=== PATIENT | male | born 1975 | race Caucasian/White ===

== ENCOUNTER 2017-02-18 19:13 | Emergency (ER) | payer BC, OTHER ==
--- NOTE | 2017-02-18 20:47 | ER Document Report ---
ED Medical Screen (RME) - General Chief Complaint: Constipation Stated Complaint: NO BOWEL MOVEMENT IN 3 DAYS Time Seen by Provider: 02/18/17 20:47 Mode of Arrival: Ambulatory Information source: Patient Notes: 41-year-old male presents to ED for no BM since Saturday. He states he is feeling very blocked up in full. States he went to [facility] this morning they did x-ray putting to take glycerin suppository and MiraLAX but he has not had any improvement. He states she has had a little bit of diarrhea but no real stool. He denies any past medical history of any abdominal problems or abdominal surgeries. I have greeted and performed a rapid initial assessment of this patient. A comprehensive ED assessment and evaluation of the patient, analysis of test results and completion of medical decision making process will be conducted by an additional ED providers. TRAVEL OUTSIDE OF THE [place] IN LAST 30 DAYS: No Past Medical History - Social History Chew tobacco use (# tins/day): No Frequency of alcohol use: Rare Drug Abuse: None Renal/ Medical History: Denies: Hx Peritoneal Dialysis Physical Exam - Abdominal Inspection: Normal Distension: No distension Bowel sounds: Hypoactive Tenderness: Nontender. No: Tender Organomegaly: No organomegaly
--- NOTE | 2017-02-19 01:23 | ER Document Report ---
ED General - General Chief Complaint: Constipation Stated Complaint: NO BOWEL MOVEMENT IN 3 DAYS Time Seen by Provider: 02/18/17 20:47 Mode of Arrival: Ambulatory TRAVEL OUTSIDE OF THE [place] IN LAST 30 DAYS: No - HPI Notes: Patient is a 41-year-old white male with no history of previous abdominal surgeries or issues presents that he has had no bowel movement for 3 days then had a hard bowel movement and felt like he might be getting obstructed. He was seen in [place] where they did an x-ray and advised him to take MiraLAX and a suppository. After this he evacuated and had a loose bowel movement.' No narcotic use, abdominal pain, fever, nausea, vomiting. No prior history of constipation. No history of irritable bowel syndrome. Past Medical History - General Information source: Patient - Social History Smoking Status: Never Smoker Chew tobacco use (# tins/day): No Frequency of alcohol use: Rare Drug Abuse: None Lives with: Family Family History: None Patient has suicidal ideation: No Patient has homicidal ideation: No Renal/ Medical History: Denies: Hx Peritoneal Dialysis Review of Systems - Review of Systems Notes: REVIEW OF SYSTEMS: CONSTITUTIONAL : Denies fever, chills, or sweats. Denies recent illness. EENT: Denies eye, ear, throat, or mouth pain or symptoms. Denies nasal or sinus congestion or discharge. Denies throat, tongue, or mouth swelling or difficulty swallowing. CARDIOVASCULAR: Denies chest pain. Denies palpitations or racing or irregular heart beat. Denies ankle edema. RESPIRATORY: Denies cough, cold, or chest congestion. Denies shortness of breath, difficulty breathing, or wheezing. GASTROINTESTINAL: Denies abdominal pain or distention. Denies nausea, vomiting , or diarrhea. Denies blood in vomitus, stools, or per rectum. Denies black, tarry stools. GENITOURINARY: Denies difficulty urinating, painful urination, burning, frequency, blood in urine, or discharge. MUSCULOSKELETAL: Denies back or neck pain or stiffness. Denies joint pain or swelling. SKIN: Denies rash, lesions or sores. HEMATOLOGIC : Denies easy bruising or bleeding. LYMPHATIC: Denies swollen, enlarged glands. NEUROLOGICAL: Denies confusion or altered mental status. Denies passing out or loss of consciousness. Denies dizziness or lightheadedness. Denies headache. Denies weakness or paralysis or loss of use of either side. Denies problems with gait or speech. Denies sensory loss, numbness, or tingling. Denies seizures. PSYCHIATRIC: Denies anxiety or stress. Denies depression, suicidal ideation, or homicidal ideation. ALL OTHER SYSTEMS REVIEWED AND NEGATIVE. Dictation was performed using [employer] voice recognition software Physical Exam - Vital signs Vitals: Temp Pulse Resp BP Pulse Ox 98.2 F 66 20 147/94 H 97 02/18/17 19:21 02/18/17 19:21 02/18/17 19:21 02/18/17 19:21 02/18/17 19:21 - Notes Notes: PHYSICAL EXAMINATION: GENERAL: Well-appearing, well-nourished and in no acute distress. HEAD: Atraumatic, normocephalic. EYES: Pupils equal round and reactive to light, extraocular movements intact, sclera anicteric, conjunctiva are normal. ENT: Nares patent, oropharynx clear without exudates. Moist mucous membranes. NECK: Normal range of motion, supple without lymphadenopathy LUNGS: Breath sounds clear to auscultation bilaterally and equal. No wheezes rales or rhonchi. HEART: Regular rate and rhythm without murmurs ABDOMEN: Soft, nontender, nondistended abdomen. No guarding, no rebound. No masses appreciated. Rectal exam: Heme negative. No stool in the vault. No obvious hemorrhoids. Musculoskeletal: Normal range of motion, no pitting or edema. No cyanosis. NEUROLOGICAL: Cranial nerves grossly intact. Normal speech, normal gait. Normal sensory, motor exams PSYCH: Normal mood, normal affect. SKIN: Warm, Dry, normal turgor, no rashes or lesions noted. Course - Re-evaluation Re-evalutation: 02/19/17 02:00 X-ray as interpreted by me showed no significant constipation. No evidence for obstruction. There was degenerative joint disease noted in the lower lumbar spine. The x-ray results were shared with the patient and discussed. Most likely the patient's Colon spasm that he had felt like tenesmus was after his fleets enema, but is now resolved. - Vital Signs Vital signs: Temp Pulse Resp BP Pulse Ox 98.2 F 66 20 147/94 H 97 02/18/17 19:21 02/18/17 19:21 02/18/17 19:21 02/18/17 19:21 02/18/17 19:21 Discharge - Discharge Clinical Impression: Osteoarthritis Qualifiers: Osteoarthritis location: spine Spinal region: lumbosacral Spinal osteoarthritis complication: unspecified spinal osteoarthritis Qualified Code(s) : M47.817 - Spondylosis without myelopathy or radiculopathy, lumbosacral region Constipation Qualifiers: Constipation type: other constipation type Qualified Code(s): K59.09 - Other constipation Condition: Stable Disposition: HOME, SELF-CARE Instructions: Constipation ([facility]) Additional Instructions: Drink plenty of fluids. Take magnesium citrate as needed for recurrence of constipation. For chronic constipation, you may consider MiraLAX.
--- NOTE | 2017-02-19 01:50 | RADIOLOGY REPORT (SQ) ---
EXAM DESCRIPTION: KUB/ABDOMEN (SINGLE VIEW) COMPLETED DATE/TIME: 02/19/2017 1:36 am REASON FOR STUDY: constipation?, KUB upright requested COMPARISON: None. NUMBER OF VIEWS: One view. TECHNIQUE: Supine radiographic image of the abdomen acquired. LIMITATIONS: None. FINDINGS: BOWEL GAS PATTERN: Normal bowel gas pattern. No dilated loops. CALCIFICATIONS: Possible 5 mm calculus in the right kidney. SOFT TISSUES: No gross mass or suggestion of organomegaly. HARDWARE: None in the abdomen. BONES: No acute fracture. No worrisome bone lesions. OTHER: No other significant finding. IMPRESSION: NO RADIOGRAPHIC EVIDENCE FOR ACUTE ABDOMINAL DISEASE. POSSIBLE RIGHT RENAL CALCULUS. TECHNICAL DOCUMENTATION: JOB ID: [id number] [employer]- All Rights Reserved
[2017-02-19 02:14] VITALS: BP 139/88
== END 2017-02-19 02:10 | disposition home or self-care (01) ==
LOC: ER 19:13
DX: M47.817 Spondylosis without myelopathy or radiculopathy, lumbosacral region (principal); K59.09 Other constipation; R10.9 Unspecified abdominal pain
CPT/HCPCS: 74000; 99283

== ENCOUNTER 2020-05-01 03:59 | Emergency (ER) | payer BC ==
[2020-05-01] MEDS ORDERED: TETRACAINE HCL 0.5% OPH SOLN 4 ML OS ONE (06:01)
--- NOTE | 2020-05-01 06:41 | ER Document Report ---
ED General - General Chief Complaint: Eye Problem Stated Complaint: POSSIBLE INFECTION LEFT EYE Time Seen by Provider: 05/01/20 06:06 TRAVEL OUTSIDE OF THE [place] 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 Initially there was no pain. He says that he has since then repeatedly touched and rub the eye and the eye now feels irritated. He denies fever. He denies respiratory symptoms. He is not on any prescription medication. He states he is otherwise in good general health. He specifically denies any discrete trauma to the eye. He wears glasses. His vision is normal in the opposite eye with his corrective lenses. - Related Data Allergies/Adverse Reactions: Penicillins Allergy (Verified 05/01/20 04:12) Past Medical History - General Information source: Patient, [facility] Records - Social History Smoking Status: Current Every Day Smoker Frequency of alcohol use: Rare Drug Abuse: None Family History: None - Medical History Medical History: Negative Renal/ Medical History: Denies: Hx Peritoneal Dialysis Review of Systems - Review of Systems Notes: Constitutional: Negative for fever. HENT: Negative for sore throat. Eyes: As per HPI. Cardiovascular: Negative for chest pain. Respiratory: Negative for shortness of breath. Gastrointestinal: Negative for abdominal pain, vomiting or diarrhea. Genitourinary: Negative for dysuria. Musculoskeletal: Negative for back pain. Skin: Negative for rash. Neurological: Negative for headaches, weakness or numbness. 10 point ROS negative except as marked above and in HPI. Physical Exam - Vital signs Vitals: Temp Pulse Resp BP Pulse Ox 97.9 F 79 18 166/100 H 95 05/01/20 04:04 05/01/20 04:04 05/01/20 04:04 05/01/20 04:04 05/01/20 04:04 - Notes Notes: GENERAL: Well-developed well-nourished middle-age male appearing in no acute distress. SKIN: Good turgor no rashes. HEAD: Normocephalic atraumatic. EYES: PERRLA. EOMI. Prominent sub-conjunctival hemorrhage of the medial aspect of the left eye. No foreign body on lid eversion upper or lower. Fluorescein staining shows corneal abrasion along the limbus on the nasal side. No ulcerations or dendrites noted. There is no drainage or discharge. No streaming of floor seen. Media clear. Patient is unable to read eye chart with the left eye as per his usual baseline. EARS: CANALS AND TMS CLEAR. NOSE: CLEAR. MOUTH: Moist mucosa. Good dentition. No stridor or edema. No drooling. NECK: Supple. No masses or thyromegaly. No adenopathy. Carotids 2+ without bruits. No JVD. BACK: Symmetrical without tenderness. CHEST: Respirations unlabored. Breath sounds clear and symmetrical. HEART: Regular rhythm. No murmur gallop or rub. ABDOMEN: Soft nontender without masses, organomegaly or rebound. Bowel sounds normally active. No bruits. GENITALIA: Deferred. EXTREMITIES: No edema. No calf tenderness. Cap refill less than 1.5 seconds. Dorsalis pedis and posterior tibial pulses 3+ and symmetrical. NEUROLOGICAL: GCS 15. Alert and oriented x3. Normal gait. Fluent speech. Cranial nerves II through XII intact. Sensorimotor and cerebellar normal. Normal tone. PSYCHIATRIC: Appropriate affect. - HEENT Visual acuity- Right eye: 20/50 Visual acuity- Left eye: 0 Visual acuity- Both eyes: 20/50 Corrective lenses worn: Yes Course - Re-evaluation Re-evalutation: 05/01/20 08:06 CBC and coags unremarkable. Clinically this man appears to have a sub-conjun ctival hemorrhage and a corneal abrasion. Symptoms improved with instillation of anesthetic drops. Instructed to follow-up with his supervisor grips within the next 24 hours. He will use cold compresses and dark glasses. I will prescribe an antibiotic ointment and some tramadol for supplemental pain relief. Understands to return here for any red flag symptoms. Findings, clinical impression and plan of treatment have been discussed with patient/family. Understanding of current findings and recommendations has been acknowledged by them and there is agreement regarding disposition and follow-up. - Vital Signs Vital signs: Temp Pulse Resp BP Pulse Ox 97.9 F 79 18 166/100 H 95 05/01/20 04:04 05/01/20 04:04 05/01/20 04:04 05/01/20 04:04 05/01/20 04:04 - Laboratory Result Diagrams: 05/01/20 06:52 05/01/20 06:52 Laboratory results interpreted by me: 05/01/20 06:52 MCHC 36.2 H Plt Count 143 L Procedures - Eye Procedure Left Time completed: 07:00 Alcaine Drops Administered: Yes Fluorescein applied: Left Slit lamp used: Yes Discharge - Discharge Clinical Impression: Subconjunctival hemorrhage of left eye, Corneal abrasion left eye Condition: Stable Disposition: HOME, SELF-CARE Additional Instructions: Subconjunctival Hemorrhage You've had an episode of bleeding between the sclera (white of the eye) and the membrane which covers it. While ugly, this bleeding is not dangerous in any way. Your eye has been examined to ensure that no internal hemorrhage is present. While subconjunctival hemorrhage can be caused by a minor injury, it is usually due to coughing, sneezing, straining, or rubbing the eye. There is no specific treatment. Expect the red area to spread considerably. Avoid rubbing the eye. It may take two or three weeks for the blood to clear. If you have any pain, discharge from the eye, or problems with your vision, call the doctor or return immediately for re-evaluation. Corneal Abrasion You have a corneal abrasion, a scratch on the surface of the eye. The pain of a corneal abrasion feels like a sharp particle in the eye. Usually, antibiotics are placed in the eye to prevent infection. Occasionally, medication will be placed in the eye to dilate the pupil. This is done to relieve some of your discomfort and is only temporary. Pain medication may be required. Don't drive or operate machinery until you have the use of both your eyes. The abrasion usually is healed in one or two days. A follow-up examination to confirm healing is recommended. Call the doctor or return at once if you develop severe pain, decreasing vision, eye swelling, or purulent drainage. Return here as needed for new or worsening symptoms. Use prescribed medication as instructed. Follow-up with your supervisor grips within the next 24 hours. Prescriptions: Tramadol HCl [Ultram 50 mg Tablet] 50 mg PO Q4HP PRN #12 tab PRN Reason: Polymyxin B Sulf/Trimethoprim [Polytrim Eye Drops] 1 drop OS Q3H 3 Days #10 ml
[2020-05-01 07:09] LABS: ABSOLUTE BASOPHILS # (AUTO) 0.1 10^3/uL (0.0-0.2); ABSOLUTE EOSINOPHILS # (AUTO) 0.2 10^3/uL (0.0-0.6); ABSOLUTE LYMPHOCYTES (AUTO) 2.7 10^3/uL (0.5-4.7); ABSOLUTE MONOCYTES (AUTO) 0.7 10^3/uL (0.1-1.4); ABSOLUTE NEUT (AUTO) 4.7 10^3/uL (1.7-8.2); BASOPHILS % (AUTO) 1.1 % (0-2); EOSINOPHILS % (AUTO) 2.5 % (0-6); HEMATOCRIT 44.4 % (37.9-51.0); LYMPHOCYTES % (AUTO) 31.8 % (13-45); MEAN CORPUSCULAR HEMOGLOBIN 33.1 pg (27.0-33.4); MEAN CORPUSCULAR HGB CONC 36.2 g/dL (32.0-36.0); MEAN CORPUSCULAR VOLUME 92 fl (80-97); MONOCYTES % (AUTO) 8.1 % (3-13); PLATELET COUNT 143 10^3/uL (150-450); RED BLOOD COUNT 4.84 10^6/uL (4.35-5.55); RED CELL DISTRIBUTION WIDTH 13.2 % (11.5-14.0); SEGMENTED NEUTROPHILS % (AUTO) 56.5 % (42-78); TOTAL CELLS COUNTED % (AUTO) 100 %; WHITE BLOOD COUNT 8.3 10^3/uL (4.0-10.5)
[2020-05-01 07:14] LABS: INTERNATIONAL RATION (INR) 0.97; PROTHROMBIN TIME 13.1 SEC (11.4-15.4)
[2020-05-01 07:15] LABS: PARTIAL THROMBOPLASTIN TIME 31.6 SEC (23.5-35.8)
[2020-05-01 07:31] LABS: ANION GAP 9 (5-19); BLOOD UREA NITROGEN 13 mg/dL (7-20); CALCIUM 9.7 mg/dL (8.4-10.2); CARBON DIOXIDE 26 mmol/L (22-30); CHLORIDE 107 mmol/L (98-107); GLUCOSE 105 mg/dL (75-110); POTASSIUM 3.8 mmol/L (3.6-5.0)
[2020-05-01 09:02] VITALS: BP 148/91
== END 2020-05-01 08:49 | disposition home or self-care (01) ==
LOC: ER 03:59
DX: S05.02XA Injury of conjunctiva and corneal abrasion without foreign body, left eye, initial encounter (principal); X58.XXXA Exposure to other specified factors, initial encounter; H11.32 Conjunctival hemorrhage, left eye; H54.8 Legal blindness, as defined in USA; F17.200 Nicotine dependence, unspecified, uncomplicated; Z88.0 Allergy status to penicillin
CPT/HCPCS: 99283; 36415; 85025; 85610; 85730; 80048; J3490